=== PATIENT | female | born 1960 | race Caucasian/White ===

== ENCOUNTER → 2017-11-19 | Outpatient (CLI) | payer BC | END | disposition home or self-care (01) | LOC: CFH 09:59 | PROVIDERS: ATTEND Family Medicine | DX: Z12.31 Encounter for screening mammogram for malignant neoplasm of breast (principal) | CPT/HCPCS: 77067 ==

== ENCOUNTER 2017-12-15 11:03 | Emergency (ER) | payer BC ==
[~2017-12-15] VITALS: Ht 157.5 cm; Wt 86.0 kg
[2017-12-15] MEDS ORDERED: SUMA100T4 PO (11:33)
[2017-12-15] MEDS ORDERED: TRAZ-137 PO (11:33)
[2017-12-15] MEDS ORDERED: ATOR40TA78 PO (11:33)
[2017-12-15] MEDS ORDERED: LEVO100T5 PO (11:33)
[2017-12-15] MEDS ORDERED: LIDO700A42 TP (11:33)
[2017-12-15] MEDS ORDERED: OMEP40CA6 PO (11:33)
[2017-12-15] MEDS ORDERED: MELO7.5T31 PO (11:33)
[2017-12-15] MEDS ORDERED: LORazepam 2 MG/ML, 1ML IVPush ONE (12:00)
[2017-12-15] MEDS ORDERED: SODIUM CHLORIDE FLUSH 10ML SYR IVF ONE (12:00)
[2017-12-15] MEDS ORDERED: LORazepam 2 MG/ML, 1ML ONE (12:03)
[2017-12-15 12:16] LABS: BASOPHILS # (AUTO) 0.02 x10^3/uL (0-0.1); BASOPHILS % (AUTO) 0 % (0-1); EOSINOPHILS # (AUTO) 0.13 x10^3/uL (0-0.4); EOSINOPHILS % (AUTO) 2 % (1-7); LYMPHOCYTES # (AUTO) 3.34 x10^3/uL (1-3.4); LYMPHOCYTES % (AUTO) 41 % (22-44); MD NO; MEAN CORPUSCULAR HEMOGLOBIN 31.4 pg (27.0-34.8); MEAN CORPUSCULAR HGB CONC 34.2 g/dL (32.4-35.8); MONOCYTES # (AUTO) 0.56 x10^3/uL (0.2-0.8); MONOCYTES % (AUTO) 7 % (2-9); NEUTROPHILS % (AUTO) 51 % (42-75); PLATELET COUNT 333 x10^3/uL (130-400); RED BLOOD COUNT 4.77 x10^6/uL (3.82-5.3); RED CELL DISTRIBUTION WIDTH 12.2 % (9.6-15.2)
[2017-12-15 12:28] LABS: ALANINE AMINOTRANSFERASE 38 U/L (12-78); ALBUMIN 3.8 g/dL (3.4-5.0); ANION GAP 9 mmol/L (5-15); CALCIUM 8.9 mg/dL (8.5-10.1); CHLORIDE 107 mmol/L (98-107); CREATININE 0.81 mg/dL (0.55-1.02)
[2017-12-15 12:32] LABS: D-DIMER 0.32 ug/mlFEU (0.00-0.52); INTERNATIONAL NORMALIZED RATIO 0.93 (0.93-1.1); PROTHROMBIN TIME 9.7 Seconds (9.6-11.5)
[2017-12-15 12:34] LABS: BILIRUBIN,TOTAL 0.5 mg/dL (0.2-1.0)
[2017-12-15 12:35] LABS: ALKALINE PHOSPHATASE 80 U/L (45-117); TOTAL PROTEIN 7.7 g/dL (6.4-8.2)
[2017-12-15 12:37] LABS: TROPONIN I < 0.015 ng/mL (0.000-0.045)
[2017-12-15 13:41] LABS: MICROSCOPIC NOT IND
[2017-12-15 13:55] LABS: CULTURE INDICATED? NO
[2017-12-15] MEDS ORDERED: MECLIZINE CHEWABLE 25 MG TAB PO ONE (14:30)
[2017-12-15] MEDS ORDERED: MECLIZINE CHEWABLE 25 MG TAB ONE (14:53)
[2017-12-15 17:22] VITALS: BP 145/88
== END 2017-12-15 17:25 | disposition home or self-care (01) ==
LOC: ED 12:09
DX: R42 Dizziness and giddiness (principal); R41.1 Anterograde amnesia
CPT/HCPCS: 36415; 71046; 80053; 81003; 83690; 83880; 84484; 85025; 85379; 85610; 85730; 93005; 96374; 99285; J2060

== ENCOUNTER 2018-03-06 08:25 | Emergency (ER) | payer BC ==
[~2018-03-06] VITALS: Ht 157.5 cm; Wt 86.0 kg
[~2018-03-06 08:25] MED LIST: ATOR40TA78 PO; LEVO100T5 PO; LIDO700A42 TP; MELO7.5T31 PO; OMEP40CA6 PO; SUMA100T4 PO; TRAZ-137 PO
[2018-03-06 08:29] VITALS: BP 165/118
--- NOTE | 2018-03-06 09:07 | NUR ---
Onset of R eye redness & pain 3 days ago. Today awoke seeing 'auras' when looking at lights as well as overall blurred vision in R eye. Has been seen by ER MD & call is out to opthalmology. Pt sitting in chair comfortably, aware of POC.
--- NOTE | 2018-03-06 09:16 | NUR ---
Dr. Lyons, opthalmology coming to see pt.
--- NOTE | 2018-03-06 10:02 | NUR ---
Dr. Lyons here to see pt.
--- NOTE | 2018-03-06 10:12 | NUR ---
Recieved report from MARILOU Ren. All questions answered. Assuming care of pt.
== END 2018-03-06 10:45 | disposition home or self-care (01) ==
LOC: ED 08:49
DX: H57.11 Ocular pain, right eye (principal); K21.9 Gastro-esophageal reflux disease without esophagitis; E78.5 Hyperlipidemia, unspecified; E03.9 Hypothyroidism, unspecified
CPT/HCPCS: 99283

== ENCOUNTER → 2018-04-28 | Outpatient (CLI) | payer BC | END | disposition home or self-care (01) | LOC: CFH 09:11 | PROVIDERS: ATTEND Family Medicine | DX: S83.222A Peripheral tear of medial meniscus, current injury, left knee, initial encounter (principal); M71.22 Synovial cyst of popliteal space [Baker], left knee; M25.762 Osteophyte, left knee; X58.XXXA Exposure to other specified factors, initial encounter; Y93.89 Activity, other specified; Y92.89 Other specified places as the place of occurrence of the external cause; Y99.8 Other external cause status ==

== ENCOUNTER → 2018-05-13 | Outpatient (CLI) | payer BC | END | disposition home or self-care (01) | LOC: CFH 12:57 | PROVIDERS: ATTEND Orthopaedic Surgery | DX: M67.813 Other specified disorders of tendon, right shoulder (principal) ==

== ENCOUNTER 2018-07-14 12:50 | Outpatient (CLI) | payer BC ==
[2018-07-14] MEDS ORDERED: RANI150T4 PO (13:36)
[2018-07-14] MEDS ORDERED: NAPR1TAB21 PO (13:36)
[2018-07-14 14:03] LABS: BASOPHILS # (AUTO) 0.03 x10^3/uL (0-0.1); BASOPHILS % (AUTO) 0 % (0-1); EOSINOPHILS # (AUTO) 0.09 x10^3/uL (0-0.4); EOSINOPHILS % (AUTO) 1 % (1-7); LYMPHOCYTES # (AUTO) 3.05 x10^3/uL (1-3.4); LYMPHOCYTES % (AUTO) 34 % (22-44); MD NO; MEAN CORPUSCULAR HEMOGLOBIN 31.5 pg (27.0-34.8); MEAN CORPUSCULAR HGB CONC 33.5 g/dL (32.4-35.8); MEAN CORPUSCULAR VOLUME 93.8 fL (80-100); MEAN PLATELET VOLUME 7.2 fL (7.4-10.4); MONOCYTES % (AUTO) 7 % (2-9); NEUTROPHILS # (AUTO) 5.23 x10^3/uL (1.8-6.8); NEUTROPHILS % (AUTO) 58 % (42-75); PLATELET COUNT 361 x10^3/uL (130-400); RED BLOOD COUNT 4.77 x10^6/uL (3.82-5.3); RED CELL DISTRIBUTION WIDTH 13.5 % (9.6-15.2)
[2018-07-14 14:13] LABS: INTERNATIONAL NORMALIZED RATIO 0.9 (0.93-1.1); PROTHROMBIN TIME 9.5 Seconds (9.6-11.5)
[2018-07-14 14:15] LABS: ANION GAP 6 mmol/L (5-15); CHLORIDE 111 mmol/L (98-107); CREATININE 0.83 mg/dL (0.55-1.02)
[2018-07-14 14:28] LABS: HEMOGLOBIN A1C 5.6 % (4.2-6.3)
== END 2018-07-14 23:59 | disposition home or self-care (01) ==
LOC: STAR 12:50
PROVIDERS: ATTEND Orthopaedic Surgery
DX: Z01.818 Encounter for other preprocedural examination (principal); Z96.652 Presence of left artificial knee joint
CPT/HCPCS: 36415; 80048; 83036; 85025; 85610; 85730; 87081; 87806; 93005; G0475

== ENCOUNTER → 2018-07-15 | Outpatient (CLI) | payer BC ==
[~2018-07-15] MED LIST changes: +NAPR1TAB21 PO; +RANI150T4 PO
== END | disposition home or self-care (01) ==
LOC: RAD 13:12
PROVIDERS: ATTEND Otolaryngology
DX: K44.9 Diaphragmatic hernia without obstruction or gangrene (principal); K22.8 Other specified diseases of esophagus; K22.5 Diverticulum of esophagus, acquired; K20.9 Esophagitis, unspecified
CPT/HCPCS: 74220

== ENCOUNTER 2018-07-25 05:24 | Observation (INO) | payer BC ==
[2018-07-14 13:19] VITALS: BP 134/87
[~2018-07-25] VITALS: Ht 158.8 cm; Wt 89.5 kg
[2018-07-25] MEDS ORDERED: LACTATED RINGERS 1,000 ML IV SCH (05:57)
[2018-07-25] MEDS ORDERED: GABAPENTIN 300 MG CAPSULE PO ONE (06:00)
[2018-07-25] MEDS ORDERED: ACETAMINOPHEN 500 MG TABLET PO ONE (06:00)
[2018-07-25] MEDS ORDERED: KETOROLAC 60 MG/2 ML ONE (06:15)
[2018-07-25] MEDS ORDERED: ROPIvacaine/PF 0.2%, 20 ML ONE (06:15)
[2018-07-25] MEDS ORDERED: TRANEXAMIC ACID 100 MG/ML, 10ML ONE ×4 (06:15)
[2018-07-25] MEDS ORDERED: EPINEPHRINE 1 MG/ML, 1ML ONE (06:16)
[2018-07-25] MEDS ORDERED: SODIUM CHLORIDE 0.9% 50 ML ONE (06:16)
[2018-07-25] MEDS ORDERED: MIDAZOLAM 1 MG/ML, 2ML ONE (06:29)
[2018-07-25] MEDS ORDERED: FENTANYL PF 250 MCG/5ML ONE (06:29)
[2018-07-25] MEDS ORDERED: PREG75CA PO (06:42)
[2018-07-25] MEDS ORDERED: DEXAMETHASONE 4 MG/ML, 1ML ONE (06:56)
[2018-07-25] MEDS ORDERED: CEFAZOLIN 1,000 MG ONE (06:56)
[2018-07-25] MEDS ORDERED: ROCURONIUM 10MG/ML,5ML ONE (06:56)
[2018-07-25] MEDS ORDERED: PROPOFOL 10 MG/ML, 20ML ONE (06:56)
[2018-07-25] MEDS ORDERED: SUCCINYLCHOLINE 20 MG/ML, 10ML ONE (06:56)
[2018-07-25] MEDS ORDERED: POLYETHYLENE GLYCOL 17 GM PACKET PO PRN (07:00)
[2018-07-25] MEDS ORDERED: ALBUTEROL SULFATE 2.5 MG/3 ML NPPB PRN (07:00)
[2018-07-25] MEDS ORDERED: DIPHENHYDRAMINE 25 MG CAPSULE PO PRN (07:00)
[2018-07-25] MEDS ORDERED: MAGNESIUM HYDROXIDE 8%, 30ML UDC PO PRN (07:00)
[2018-07-25] MEDS ORDERED: PROMETHAZINE 25 MG/ML, 1ML IM PRN (07:00)
[2018-07-25] MEDS ORDERED: MEPERIDINE/PF 25MG/0.5ML IVPush PRN (07:00)
[2018-07-25] MEDS ORDERED: ALUMINUM/MAG/SIMETHICONE 30 ML UDC PO PRN (07:00)
[2018-07-25] MEDS ORDERED: HYDROmorphone 1 MG/ML, 1ML INJ IVPush PRN (07:00)
[2018-07-25] MEDS ORDERED: PSYLLIUM PACKET PO PRN (07:00)
[2018-07-25] MEDS ORDERED: HYDROmorphone 1 MG/ML, 1ML INJ IV PRN (07:00)
[2018-07-25] MEDS ORDERED: DIPHENHYDRAMINE 50 MG/ML, 1ML IVPush PRN (07:00)
[2018-07-25] MEDS ORDERED: hydrALAzine 20 MG/ML, 1ML IV PRN (07:00)
[2018-07-25] MEDS ORDERED: METOCLOPRAMIDE 5 MG/ML, 2ML IV PRN (07:00)
[2018-07-25] MEDS ORDERED: SCOPOLAMINE PATCH, 1.5MG PATCH.TD72 TD SCH (07:00)
[2018-07-25] MEDS ORDERED: OXYcodone 5 MG/5 ML ORAL.SOL UDC PO PRN (07:00)
[2018-07-25] MEDS ORDERED: FENTANYL PF 100 MCG/2ML IV PRN (07:00)
[2018-07-25] MEDS ORDERED: PROMETHAZINE 25 MG/ML, 1ML IV PRN (07:00)
[2018-07-25] MEDS ORDERED: KETOROLAC 30 MG/1 ML IV PRN (07:00)
[2018-07-25] MEDS ORDERED: DEXAMETHASONE 4 MG/ML, 1ML IVPush SCH (07:00)
[2018-07-25] MEDS ORDERED: SENNA/DOCUSATE TABLET PO PRN (07:00)
[2018-07-25] MEDS ORDERED: ONDANSETRON 2MG/ML, 2ML IVPush PRN ×2 (07:00)
[2018-07-25] MEDS ORDERED: LABETALOL 5MG/ML, 20ML IV PRN (07:00)
[2018-07-25] MEDS ORDERED: ONDANSETRON 4 MG TABLET PO PRN (07:00)
[2018-07-25] MEDS ORDERED: HYDROmorphone 2 MG/ML, 1ML ONE (08:22)
[2018-07-25] MEDS ORDERED: OXYcodone 5 MG/5 ML ORAL.SOL UDC ONE (08:22)
[2018-07-25] MEDS ORDERED: FENTANYL PF 100 MCG/2ML ONE (08:22)
[2018-07-25] MEDS ORDERED: PROMETHAZINE 25 MG/ML, 1ML ONE (08:24)
[2018-07-25] MEDS ORDERED: TRANEXAMIC ACID 1,000 MG in SODIUM CHLORIDE 0.9% 100 ML IVPB ONE (08:30)
[2018-07-25] MEDS ORDERED: ONDANSETRON 2MG/ML, 2ML ONE (08:36)
[2018-07-25] MEDS ORDERED: METOCLOPRAMIDE 5 MG/ML, 2ML ONE (08:36)
[2018-07-25] MEDS ORDERED: MEPERIDINE/PF 25MG/ML,1ML ONE (08:57)
[2018-07-25 10:00] VITALS: BP 101/60
[2018-07-25] MEDS ORDERED: SCOPOLAMINE PATCH, 1.5MG PATCH.TD72 TD PRN (10:30)
[2018-07-25] MEDS: DOCUSATE 100 MG CAPSULE PO SCH ×2 (11:27→20:03)
[2018-07-25] MEDS: KETOROLAC 30 MG/1 ML IV SCH ×2 (11:27→20:03)
[2018-07-25] MEDS: ACETAMINOPHEN 325 MG TABLET PO SCH ×5 (11:27→23:30)
[2018-07-25] MEDS: POTASSIUM CHLORIDE 20 MEQ in D5%-0.45% NACL 1,000 ML IV SCH ×2 (11:27→19:30)
[2018-07-25 13:21] VITALS: BP 107/64
[2018-07-25] MEDS: OXYcodone IR 5MG TABLET PO PRN ×3 (13:21→21:25)
[2018-07-25] MEDS: PREGABALIN 75 MG CAPSULE PO SCH ×2 (15:52→20:04)
[2018-07-25] MEDS: CEFAZOLIN PMX 1GM/50ML 50 ML IVPB SCH ×2 (15:53→23:29)
[2018-07-25] MEDS: ASPIRIN 81 MG TABLET EC PO SCH ×2 (17:38→19:27)
[2018-07-25] MEDS: TAMSULOSIN 0.4 MG CAP.ER.24H PO SCH (17:38)
[2018-07-25] MEDS ORDERED: FAMOTIDINE 20 MG TABLET ONE (17:42)
[2018-07-25 20:02] VITALS: BP 102/64
[2018-07-25] MEDS ORDERED: FAMOTIDINE 20 MG TABLET PO SCH (21:00)
[2018-07-25] MEDS ORDERED: ATORVASTATIN 40 MG TABLET PO SCH (21:00)
[2018-07-26 00:13] VITALS: BP 114/73
[2018-07-26] MEDS: OXYcodone IR 5MG TABLET PO PRN ×3 (01:29→09:40)
[2018-07-26] MEDS: ACETAMINOPHEN 325 MG TABLET PO SCH ×3 (03:55→11:35)
[2018-07-26] MEDS: KETOROLAC 30 MG/1 ML IV SCH (03:56)
[2018-07-26] MEDS: POTASSIUM CHLORIDE 20 MEQ in D5%-0.45% NACL 1,000 ML IV SCH (03:56)
[2018-07-26 04:11] VITALS: BP 109/79
[2018-07-26] MEDS ORDERED: OMEPRAZOLE 20 MG CAPSULE.DR PO SCH (06:00)
[2018-07-26] MEDS ORDERED: LEVOTHYROXINE 100 MCG TABLET PO SCH (06:00)
[2018-07-26] MEDS ORDERED: DEXAMETHASONE 4 MG/ML, 1ML IVPush ONE (07:00)
[2018-07-26 07:44] VITALS: BP 112/69
[2018-07-26] MEDS ORDERED: SUMATRIPTAN 100 MG TABLET PO PRN (08:00)
[2018-07-26] MEDS: DOCUSATE 100 MG CAPSULE PO SCH (08:11)
[2018-07-26] MEDS: ASPIRIN 81 MG TABLET EC PO SCH (08:11)
[2018-07-26] MEDS: PREGABALIN 75 MG CAPSULE PO SCH (08:11)
[2018-07-26] MEDS: TAMSULOSIN 0.4 MG CAP.ER.24H PO SCH (08:12)
== END 2018-07-26 12:10 | disposition home or self-care (01) ==
LOC: OR 05:24 → ORIP 06:40 → 4NOR 09:50 → DCLOUNGE 07-26 11:49
PROVIDERS: ADMIT Orthopaedic Surgery; ATTEND Orthopaedic Surgery
DX: M17.12 Unilateral primary osteoarthritis, left knee (principal)
CPT/HCPCS: 27447; 36415; 73560; 85014; 85018; 96365; 96366; 96375; 96376; 97110; 97116; 97161; 97530; C1713; C1776; G0378; J0171; J0330; J0690; J1100; J1170; J1885; J2250; J2405; J2550; J2704; J2765; J2795; J3010; J3480; J7120

== ENCOUNTER 2018-08-06 16:47 | Inpatient (IN) | payer BC ==
[~2018-08-06] VITALS: Ht 157.5 cm; Wt 93.4 kg
[~2018-08-06 16:47] MED LIST changes: +PREG75CA PO
[2018-08-06] MEDS ORDERED: SODIUM CHLORIDE FLUSH 10ML SYR IVF ONE (17:00)
[2018-08-06] MEDS ORDERED: SODIUM CHLORIDE 0.9% 1,000ML IVBOLUS ONE (17:00)
[2018-08-06] MEDS ORDERED: SODIUM CHLORIDE 0.9% 1,000 ML IV ONE (17:00)
--- NOTE | 2018-08-06 17:00 | NUR ---
PT BIB [facility] FOR SEVERE LOWER ABDOMINAL PAIN. PT HAD LEFT KNEE REPLACEMENT ON 07/25 AND REPORTS TAKING OXYCODONE FOR PAIN POST OP. PT STATES BM 08/05. PT ATTACHED TO MONITOR. SBP 140-150S. PT C/O PAIN. AAO X 4, DAUGHTER AT BEDSIDE.
--- NOTE | 2018-08-06 17:11 | NUR ---
PT UP WITH WALKER TO AMBULATE WITH STEADY GAIT TO THE RESTROOM FOR URINE SAMPLE.
--- NOTE | 2018-08-06 17:26 | NUR ---
PT BACK FROM BATHROOM, ATTACHED TO MONITOR, UA SENT.
[2018-08-06 17:35] LABS: MICROSCOPIC AUTO
[2018-08-06 17:38] LABS: CULTURE INDICATED? YES
--- NOTE | 2018-08-06 17:59 | NUR ---
PT TO RESTROOM, HAD "GOOD POOP FIRST AND NOW ITS WATER BUT I STILL HAVE PAIN." NOTIFIED.
[2018-08-06] MEDS ORDERED: OMNIPAQUE 350 MG/ML, 100ML BOTTLE ONE (18:00)
--- NOTE | 2018-08-06 18:22 | NUR ---
PT STATES PAIN INTENSITY IS LESS ALONG WITH FREQUENCY OF PAIN. PT RESTING IN GURNEY WITH FAMILY AT BEDSIDE, FALL PRECAUTIONS IN PLACE.
[2018-08-06 18:23] LABS: MEAN CORPUSCULAR HEMOGLOBIN 32.1 pg (27.0-34.8); MEAN CORPUSCULAR HGB CONC 33.6 g/dL (32.4-35.8); MEAN CORPUSCULAR VOLUME 95.4 fL (80-100); MEAN PLATELET VOLUME 6.5 fL (7.4-10.4); PLATELET COUNT 405 x10^3/uL (130-400); RED BLOOD COUNT 3.99 x10^6/uL (3.82-5.3); RED CELL DISTRIBUTION WIDTH 13.8 % (9.6-15.2)
[2018-08-06 18:32] LABS: ALANINE AMINOTRANSFERASE 31 U/L (12-78); ALBUMIN 3.5 g/dL (3.4-5.0); ANION GAP 7 mmol/L (5-15); CALCIUM 9.2 mg/dL (8.5-10.1); CHLORIDE 108 mmol/L (98-107); CREATININE 0.83 mg/dL (0.55-1.02)
[2018-08-06 18:34] LABS: ALKALINE PHOSPHATASE 102 U/L (45-117); BILIRUBIN,TOTAL 1.2 mg/dL (0.2-1.0); TOTAL PROTEIN 6.9 g/dL (6.4-8.2)
[2018-08-06 18:51] LABS: MD YES
[2018-08-06 18:53] LABS: <RBC MORPHOLOGY> NORMAL; BAND#(MANUAL) 2.73 x10^3/uL; BANDS%(MANUAL) 13 % (0-7); EOS#(MANUAL) 0.21 x10^3/uL (0.0-0.4); EOS% (MANUAL) 1 % (1-7); LYMPH#(MANUAL) 1.47 x10^3/uL (1-3.4); LYMPHS% (MANUAL) 7 % (22-44); MONOS#(MANUAL) 0.63 x10^3/uL (0.3-2.7); MONOS% (MANUAL) 3 % (2-9); SEG#(MANUAL) 15.96 x10^3/uL (1.8-6.8); SEGS% (MANUAL) 76 % (42-75)
[2018-08-06 18:54] LABS: <PLATELET ESTIMATE> INCREASED; <PLT MORPHOLOGY> NORMAL PLT MORPH
--- NOTE | 2018-08-06 19:04 | NUR ---
REPORT GIVEN TO JESSICA RN. PT TO CT.
--- NOTE | 2018-08-06 19:05 | NUR ---
PT TO CT
--- NOTE | 2018-08-06 19:40 | NUR ---
PT RESTING ON GURNEY, MONITORS IN PLACE, CALL LIGHT WITHIN REACH, DENIES NEEDS AT THIS TIME. AWAITING CT RESULT
[2018-08-06] MEDS ORDERED: CIPROFLOXACIN/PMX 400MG/200ML 100 ML IVPB ONE (20:00)
[2018-08-06] MEDS ORDERED: METRONIDAZOLE PMX 500MG/100ML 100 ML IVPB ONE (20:00)
[2018-08-06] MEDS ORDERED: CIPROFLOXACIN/PMX 400MG/200ML 200 ML ONE (20:14)
[2018-08-06] MEDS ORDERED: METRONIDAZOLE PMX 500MG/100ML 100 ML ONE (20:14)
--- NOTE | 2018-08-06 20:23 | NUR ---
PT RESTING ON THE GURNEY, DENIES NEEDS, IV FLUIDS, IV ABX INFUSING, MONITORS IN PLACE, CALL LIGHT WITHIN REACH.
[2018-08-06] MEDS ORDERED: SODIUM CHLORIDE FLUSH 10ML SYR IVF PRN (20:30)
[2018-08-06] MEDS ORDERED: BISACODYL 10 MG SUPP PR PRN (21:00)
[2018-08-06] MEDS ORDERED: POLYETHYLENE GLYCOL 17 GM PACKET PO PRN (21:00)
[2018-08-06] MEDS ORDERED: ONDANSETRON ODT 4 MG PO PRN (21:00)
[2018-08-06] MEDS ORDERED: SUMATRIPTAN 100 MG TABLET PO SCH (21:00)
[2018-08-06] MEDS ORDERED: ACETAMINOPHEN 325 MG TABLET PO PRN (21:00)
[2018-08-06] MEDS ORDERED: HEPARIN 5,000 UNITS/ML, 1ML SQ SCH (21:00)
[2018-08-06 21:07] VITALS: BP 145/89
[2018-08-06] MEDS: OXYcodone IR 5MG TABLET PO PRN (21:33)
[2018-08-06 22:24] LABS: CLOSTRIDIUM DIFFICILE ANTIGEN NEGATIVE; CLOSTRIDIUM DIFFICILE TOXIN NEGATIVE (Negative)
[2018-08-06] MEDS: CIPROFLOXACIN/PMX 400MG/200ML 200 ML IV SCH (22:25)
[2018-08-06] MEDS: PREGABALIN 75 MG CAPSULE PO SCH (22:25)
[2018-08-06] MEDS: SODIUM CHLORIDE 0.9% 1,000 ML IV SCH (22:26)
[2018-08-06] MEDS: ONDANSETRON 2MG/ML, 2ML IVPush PRN (23:54)
[2018-08-07 01:31] VITALS: BP 127/74
[2018-08-07] MEDS: METRONIDAZOLE PMX 500MG/100ML 100 ML IV SCH ×3 (04:22→19:57)
[2018-08-07] MEDS: OXYcodone IR 5MG TABLET PO PRN ×4 (04:31→20:06)
[2018-08-07] MEDS: LEVOTHYROXINE 100 MCG TABLET PO SCH (05:27)
[2018-08-07 05:49] LABS: MEAN CORPUSCULAR HEMOGLOBIN 31.2 pg (27.0-34.8); MEAN CORPUSCULAR HGB CONC 33.2 g/dL (32.4-35.8); MEAN CORPUSCULAR VOLUME 93.9 fL (80-100); MEAN PLATELET VOLUME 6.3 fL (7.4-10.4); PLATELET COUNT 359 x10^3/uL (130-400); RED BLOOD COUNT 3.71 x10^6/uL (3.82-5.3); RED CELL DISTRIBUTION WIDTH 13.9 % (9.6-15.2)
[2018-08-07 05:58] LABS: ALBUMIN 3.2 g/dL (3.4-5.0); ANION GAP 7 mmol/L (5-15); CALCIUM 8.4 mg/dL (8.5-10.1); CHLORIDE 109 mmol/L (98-107)
[2018-08-07 06:02] LABS: ALANINE AMINOTRANSFERASE 32 U/L (12-78); ALKALINE PHOSPHATASE 94 U/L (45-117); BILIRUBIN,TOTAL 0.7 mg/dL (0.2-1.0); CREATININE 0.63 mg/dL (0.55-1.02); TOTAL PROTEIN 6.5 g/dL (6.4-8.2)
[2018-08-07 06:04] LABS: BASOPHILS # (AUTO) 0.01 x10^3/uL (0-0.1); BASOPHILS % (AUTO) 0 % (0-1); EOSINOPHILS # (AUTO) 0.07 x10^3/uL (0-0.4); EOSINOPHILS % (AUTO) 1 % (1-7); LYMPHOCYTES # (AUTO) 1.92 x10^3/uL (1-3.4); LYMPHOCYTES % (AUTO) 14 % (22-44); MD SCAN; MONOCYTES # (AUTO) 0.85 x10^3/uL (0.2-0.8); MONOCYTES % (AUTO) 6 % (2-9); NEUTROPHILS # (AUTO) 10.58 x10^3/uL (1.8-6.8); NEUTROPHILS % (AUTO) 79 % (42-75)
[2018-08-07 07:26] VITALS: BP 119/74
[2018-08-07] MEDS: OMEPRAZOLE 20 MG CAPSULE.DR PO SCH (07:33)
[2018-08-07] MEDS: SODIUM CHLORIDE 0.9% 1,000 ML IV SCH ×2 (07:33→16:46)
[2018-08-07] MEDS: ATORVASTATIN 40 MG TABLET PO SCH ×2 (08:17→21:12)
[2018-08-07] MEDS: PREGABALIN 75 MG CAPSULE PO SCH ×3 (08:19→21:12)
[2018-08-07] MEDS: SUMATRIPTAN 100 MG TABLET PO PRN (08:19)
[2018-08-07] MEDS ORDERED: ATORVASTATIN 40 MG TABLET PO SCH (09:00)
[2018-08-07] MEDS: SENNA/DOCUSATE TABLET PO SCH (09:10)
[2018-08-07] MEDS: CIPROFLOXACIN/PMX 400MG/200ML 200 ML IV SCH ×2 (09:10→21:12)
[2018-08-07 13:25] VITALS: BP 105/68
[2018-08-07 19:05] VITALS: BP 142/87
[2018-08-08] MEDS: OXYcodone IR 5MG TABLET PO PRN ×6 (00:25→21:27)
[2018-08-08] MEDS: SODIUM CHLORIDE 0.9% 1,000 ML IV SCH ×4 (00:26→21:26)
[2018-08-08 02:11] VITALS: BP 135/85
[2018-08-08] MEDS: METRONIDAZOLE PMX 500MG/100ML 100 ML IV SCH ×3 (04:20→19:48)
[2018-08-08 04:26] LABS: MEAN CORPUSCULAR HEMOGLOBIN 31.1 pg (27.0-34.8); MEAN CORPUSCULAR HGB CONC 32.8 g/dL (32.4-35.8); MEAN PLATELET VOLUME 6.1 fL (7.4-10.4); PLATELET COUNT 345 x10^3/uL (130-400); RED BLOOD COUNT 3.59 x10^6/uL (3.82-5.3); RED CELL DISTRIBUTION WIDTH 13.8 % (9.6-15.2)
[2018-08-08 04:36] LABS: ALANINE AMINOTRANSFERASE 25 U/L (12-78); ALBUMIN 3.1 g/dL (3.4-5.0); ANION GAP 4 mmol/L (5-15); CALCIUM 8.4 mg/dL (8.5-10.1); CHLORIDE 110 mmol/L (98-107); CREATININE 0.72 mg/dL (0.55-1.02)
[2018-08-08 04:38] LABS: ALKALINE PHOSPHATASE 87 U/L (45-117); BILIRUBIN,TOTAL 0.7 mg/dL (0.2-1.0); TOTAL PROTEIN 6.2 g/dL (6.4-8.2)
[2018-08-08 06:02] LABS: BASOPHILS # (AUTO) 0.04 x10^3/uL (0-0.1); BASOPHILS % (AUTO) 0 % (0-1); EOSINOPHILS # (AUTO) 0.13 x10^3/uL (0-0.4); EOSINOPHILS % (AUTO) 1 % (1-7); LYMPHOCYTES # (AUTO) 2.22 x10^3/uL (1-3.4); LYMPHOCYTES % (AUTO) 14 % (22-44); MD SCAN; MONOCYTES # (AUTO) 1.01 x10^3/uL (0.2-0.8); MONOCYTES % (AUTO) 6 % (2-9); NEUTROPHILS % (AUTO) 79 % (42-75)
[2018-08-08] MEDS: SUMATRIPTAN 100 MG TABLET PO PRN ×2 (06:08→08:02)
[2018-08-08] MEDS: LEVOTHYROXINE 100 MCG TABLET PO SCH (06:08)
[2018-08-08 07:44] VITALS: BP 133/83
[2018-08-08] MEDS: PREGABALIN 75 MG CAPSULE PO SCH ×3 (08:02→21:26)
[2018-08-08] MEDS: OMEPRAZOLE 20 MG CAPSULE.DR PO SCH (08:02)
[2018-08-08] MEDS: SENNA/DOCUSATE TABLET PO SCH (08:20)
[2018-08-08] MEDS: CIPROFLOXACIN/PMX 400MG/200ML 200 ML IV SCH ×2 (08:24→21:26)
[2018-08-08] MEDS: ONDANSETRON 2MG/ML, 2ML IVPush PRN (10:36)
[2018-08-08 13:01] VITALS: BP 114/72
[2018-08-08 18:40] VITALS: BP 101/66
[2018-08-08] MEDS: ATORVASTATIN 40 MG TABLET PO SCH (21:26)
[2018-08-09] MEDS: OXYcodone IR 5MG TABLET PO PRN ×6 (01:43→23:52)
[2018-08-09 01:47] VITALS: BP 119/72
[2018-08-09] MEDS: METRONIDAZOLE PMX 500MG/100ML 100 ML IV SCH ×3 (03:54→19:48)
[2018-08-09] MEDS: SODIUM CHLORIDE 0.9% 1,000 ML IV SCH ×4 (03:56→23:54)
[2018-08-09 05:06] LABS: BASOPHILS # (AUTO) 0.03 x10^3/uL (0-0.1); BASOPHILS % (AUTO) 0 % (0-1); EOSINOPHILS # (AUTO) 0.19 x10^3/uL (0-0.4); EOSINOPHILS % (AUTO) 2 % (1-7); LYMPHOCYTES # (AUTO) 2.65 x10^3/uL (1-3.4); LYMPHOCYTES % (AUTO) 24 % (22-44); MD NO; MEAN CORPUSCULAR HEMOGLOBIN 30.6 pg (27.0-34.8); MEAN CORPUSCULAR HGB CONC 32.4 g/dL (32.4-35.8); MEAN CORPUSCULAR VOLUME 94.4 fL (80-100); MEAN PLATELET VOLUME 6.4 fL (7.4-10.4); MONOCYTES # (AUTO) 0.79 x10^3/uL (0.2-0.8); MONOCYTES % (AUTO) 7 % (2-9); NEUTROPHILS # (AUTO) 7.27 x10^3/uL (1.8-6.8); NEUTROPHILS % (AUTO) 67 % (42-75); PLATELET COUNT 307 x10^3/uL (130-400); RED BLOOD COUNT 3.17 x10^6/uL (3.82-5.3); RED CELL DISTRIBUTION WIDTH 13.5 % (9.6-15.2)
[2018-08-09 05:14] LABS: ALBUMIN 2.6 g/dL (3.4-5.0); ANION GAP 6 mmol/L (5-15); CALCIUM 8.3 mg/dL (8.5-10.1); CHLORIDE 109 mmol/L (98-107)
[2018-08-09 05:17] LABS: ALANINE AMINOTRANSFERASE 23 U/L (12-78); ALKALINE PHOSPHATASE 70 U/L (45-117); BILIRUBIN,TOTAL 0.6 mg/dL (0.2-1.0); CREATININE 0.73 mg/dL (0.55-1.02); TOTAL PROTEIN 5.6 g/dL (6.4-8.2)
[2018-08-09] MEDS: LEVOTHYROXINE 100 MCG TABLET PO SCH (05:42)
[2018-08-09 07:54] VITALS: BP 130/78
[2018-08-09] MEDS: OMEPRAZOLE 20 MG CAPSULE.DR PO SCH (07:56)
[2018-08-09] MEDS: PREGABALIN 75 MG CAPSULE PO SCH ×3 (07:56→19:47)
[2018-08-09] MEDS: SENNA/DOCUSATE TABLET PO SCH (07:56)
[2018-08-09] MEDS: CIPROFLOXACIN/PMX 400MG/200ML 200 ML IV SCH ×2 (08:51→22:12)
[2018-08-09 14:26] VITALS: BP 115/76
[2018-08-09 18:49] VITALS: BP 130/77
[2018-08-09] MEDS: ATORVASTATIN 40 MG TABLET PO SCH (19:47)
[2018-08-10 02:19] VITALS: BP 108/69
[2018-08-10] MEDS: OXYcodone IR 5MG TABLET PO PRN ×2 (04:02→09:24)
[2018-08-10] MEDS: METRONIDAZOLE PMX 500MG/100ML 100 ML IV SCH (04:02)
[2018-08-10] MEDS: LEVOTHYROXINE 100 MCG TABLET PO SCH (05:34)
[2018-08-10] MEDS: SODIUM CHLORIDE 0.9% 1,000 ML IV SCH (05:34)
[2018-08-10] MEDS: OMEPRAZOLE 20 MG CAPSULE.DR PO SCH (05:44)
[2018-08-10 05:55] LABS: BASOPHILS # (AUTO) 0.04 x10^3/uL (0-0.1); BASOPHILS % (AUTO) 0 % (0-1); EOSINOPHILS # (AUTO) 0.25 x10^3/uL (0-0.4); EOSINOPHILS % (AUTO) 3 % (1-7); LYMPHOCYTES # (AUTO) 2.54 x10^3/uL (1-3.4); LYMPHOCYTES % (AUTO) 26 % (22-44); MD NO; MEAN CORPUSCULAR HEMOGLOBIN 31.8 pg (27.0-34.8); MEAN CORPUSCULAR HGB CONC 33.4 g/dL (32.4-35.8); MEAN CORPUSCULAR VOLUME 95.1 fL (80-100); MEAN PLATELET VOLUME 6.7 fL (7.4-10.4); MONOCYTES # (AUTO) 0.59 x10^3/uL (0.2-0.8); MONOCYTES % (AUTO) 6 % (2-9); NEUTROPHILS # (AUTO) 6.34 x10^3/uL (1.8-6.8); NEUTROPHILS % (AUTO) 65 % (42-75); PLATELET COUNT 376 x10^3/uL (130-400); RED BLOOD COUNT 3.47 x10^6/uL (3.82-5.3); RED CELL DISTRIBUTION WIDTH 13.6 % (9.6-15.2)
[2018-08-10 06:44] VITALS: BP 124/80
[2018-08-10] MEDS ORDERED: METR500T PO (09:05)
[2018-08-10] MEDS ORDERED: LACT1CAP35 PO (09:05)
[2018-08-10] MEDS ORDERED: CIPR500T87 PO (09:05)
[2018-08-10] MEDS: SENNA/DOCUSATE TABLET PO SCH (09:24)
[2018-08-10] MEDS: PREGABALIN 75 MG CAPSULE PO SCH (09:25)
[2018-08-10] MEDS: CIPROFLOXACIN/PMX 400MG/200ML 200 ML IV SCH (09:26)
== END 2018-08-10 12:41 | disposition home or self-care (01) | DRG 872 ==
LOC: ED 20:37 → EDIP 20:51 → 3NE 20:56 → DCLOUNGE 08-10 12:30
PROVIDERS: ADMIT Internal Medicine; ATTEND Internal Medicine
DX: A41.9 Sepsis, unspecified organism (principal); A09 Infectious gastroenteritis and colitis, unspecified; E87.2 Acidosis; D64.9 Anemia, unspecified; E78.5 Hyperlipidemia, unspecified; E89.0 Postprocedural hypothyroidism; F17.210 Nicotine dependence, cigarettes, uncomplicated; K21.9 Gastro-esophageal reflux disease without esophagitis; Z96.652 Presence of left artificial knee joint; K59.00 Constipation, unspecified; M19.90 Unspecified osteoarthritis, unspecified site; Z90.710 Acquired absence of both cervix and uterus; Z98.51 Tubal ligation status; Z88.0 Allergy status to penicillin; Z88.2 Allergy status to sulfonamides; Z88.8 Allergy status to other drugs, medicaments and biological substances
CPT/HCPCS: 36415; 74177; 80053; 81001; 83605; 83690; 85014; 85018; 85025; 87040; 87046; 87086; 87324; 87427; 89055; 93005; 96360; 96361; G0378; J0744; J2405; Q0162; Q9967; J7030

== ENCOUNTER 2018-12-23 14:37 | Emergency (ER) | payer BC ==
[~2018-12-23] VITALS: Ht 157.5 cm; Wt 84.5 kg
[~2018-12-23 14:37] MED LIST changes: +CIPR500T87 PO; +LACT1CAP35 PO; +METR500T PO; +OMEP40CA42 PO; -OMEP40CA6 PO
[2018-12-23 14:44] VITALS: BP 157/88
[2018-12-23] MEDS ORDERED: ONDANSETRON ODT 4 MG PO ONE (15:00)
[2018-12-23] MEDS ORDERED: SUMATRIPTAN 6MG/0.5ML SQ ONE ×2 (15:00→15:04)
[2018-12-23] MEDS ORDERED: KETOROLAC 30 MG/1 ML IM ONE (15:00)
[2018-12-23] MEDS ORDERED: ONDANSETRON ODT 4 MG ONE (15:04)
[2018-12-23] MEDS ORDERED: KETOROLAC 60 MG/2 ML ONE (15:04)
--- NOTE | 2018-12-23 15:13 | NUR ---
PT WITH C/O MIGRAINE STATES SHE IS OUT OF HER IMITREX SCRIPT. ERMD IN TO EVAL PT, ORDERS RECIEVED, MEDICATED PER MAR
--- NOTE | 2018-12-23 15:47 | NUR ---
Patient/Caregiver given discharge instructions and they have confirmed that they understand the instructions. Patient ambulatory with steady gait.
== END 2018-12-23 15:48 | disposition home or self-care (01) ==
LOC: ED 15:19
DX: G43.909 Migraine, unspecified, not intractable, without status migrainosus (principal); K21.9 Gastro-esophageal reflux disease without esophagitis; E78.5 Hyperlipidemia, unspecified; I10 Essential (primary) hypertension; E03.9 Hypothyroidism, unspecified; F17.200 Nicotine dependence, unspecified, uncomplicated; Z90.710 Acquired absence of both cervix and uterus
CPT/HCPCS: 96372; 99283; J1885; J3030; Q0162

== ENCOUNTER 2019-02-03 08:12 | Emergency (ER) | payer BC ==
[~2019-02-03] VITALS: Ht 157.5 cm; Wt 83.0 kg
[2019-02-03 08:31] VITALS: BP 159/99
--- NOTE | 2019-02-03 08:48 | NUR ---
BILLET SAWYER: PT TO ROOM FROM LOBBY
--- NOTE | 2019-02-03 08:59 | NUR ---
PT HAS CO OF BACK PAIN FROM MOVING HEAVY OBJECT UP STAIRS. PT STATES "THE PAIN IS TERRIBLE, I CANT MOVE, COUGH, OR BREATH, I COULDNT SLEEP LAST NIGHT EITHER" DENIES TRAUMA OR FALLING. DENIES NUMBNESS OR TINGLING IN EXTREMITIES. PAIN IS IN LOWER LEFT BACK.
[2019-02-03] MEDS ORDERED: ONDANSETRON ODT 4 MG PO ONE (09:30)
[2019-02-03] MEDS ORDERED: HYDROcodone/APAP 5/325 TABLET PO ONE (09:30)
[2019-02-03] MEDS ORDERED: CYCLOBENZAPRINE 10 MG TABLET PO ONE (09:30)
[2019-02-03] MEDS ORDERED: KETOROLAC 30 MG/1 ML IM ONE (09:30)
--- NOTE | 2019-02-03 09:37 | NUR ---
pt in xray. will medicate when returned
[2019-02-03] MEDS ORDERED: KETOROLAC 60 MG/2 ML ONE (09:46)
[2019-02-03] MEDS ORDERED: ONDANSETRON ODT 4 MG ONE (09:46)
[2019-02-03] MEDS ORDERED: CYCLOBENZAPRINE 10 MG TABLET ONE (09:46)
[2019-02-03] MEDS ORDERED: HYDROcodone/APAP 5/325 TABLET ONE (09:47)
--- NOTE | 2019-02-03 10:01 | NUR ---
MEDICATED FOR PAIN, PA AT BEDSIDE DISCUSSING POC.
--- NOTE | 2019-02-03 10:49 | NUR ---
Patient/Caregiver given discharge instructions and they have confirmed that they understand the instructions. Patient ambulatory with steady gait.
== END 2019-02-03 10:56 | disposition home or self-care (01) ==
LOC: ED 10:40
DX: S39.012A Strain of muscle, fascia and tendon of lower back, initial encounter (principal); K21.9 Gastro-esophageal reflux disease without esophagitis; I10 Essential (primary) hypertension; E03.9 Hypothyroidism, unspecified; E78.5 Hyperlipidemia, unspecified; Z90.710 Acquired absence of both cervix and uterus; Z88.0 Allergy status to penicillin; Z88.2 Allergy status to sulfonamides; X58.XXXA Exposure to other specified factors, initial encounter; Y93.89 Activity, other specified; Y92.89 Other specified places as the place of occurrence of the external cause; Y99.8 Other external cause status
CPT/HCPCS: 72110; 96372; 99284; J1885; Q0162